=== PATIENT | female | born 2000 | race Caucasian/White ===

== ENCOUNTER 2023-04-07 08:20 | Outpatient (CLI) | payer OTHER, SELFPAY ==
[2023-04-07] VITALS (21 sets, daily range): BP systolic 120–132; BP diastolic 57–74; PULSE 85–113; TEMP 36.5–36.9; O2SAT 96–99; BMI 33.1
--- NOTE | 2023-04-07 08:58 | US_ITS ---
STUDY: SECOND AND THIRD TRIMESTER OBSTETRICAL ULTRASOUND-Limited REASON FOR EXAM: Female, 22 years old Vaginal bleeding LMP: 08/18/2022 TECHNIQUE: Transabdominal and Transvaginal TECHNICAL QUALITY: Adequate. PRIOR ULTRASOUND: None. FINDINGS: There is a single intrauterine fetus. The fetus is in a cephalic presentation. There is demonstrated cardiac activity with a heart rate of 143 bpm. There is a normal amniotic fluid volume. The largest amniotic fluid pocket measures 5.4 cm. The amniotic fluid index (SILAS) is 16.7 cm. The placenta is left lateral in location and is not low lying. There are Grade 1 placental changes. The cervix measures 4.4 cm, and is open, fluid noted in the cervix EGA by LMP is 33 weeks 1 day with ROMA of 05/25/2023 Detailed biometry and anatomy study not performed US/OB Limited (No Biometrics) IMPRESSION: Single live intrauterine with heart rate 143 bpm. Cervix measures 4.4 cm and is open and there is fluid within the cervix, likely hemorrhage. Vice President Of Manufacturing also noted hyperemia to the cervix. Electronically Signed: Fidel Han MD at 11:09 EDT ,
--- NOTE | 2023-04-07 08:59 | OB.TRI.HP_ITS ---
HPI - General HPI Narrative MALVIN URIOSTEGUI, is a 22 y/o @ 33 weeks from LMP who presents to L&D for vaginal bleeding that started at 7:30 this am. She sees a community engagement coordinator (marco a arizmendi) for her care. The patient states that Marco A gave them the option to have an ultrasound in the beginning of but they dec lined. She denies recent intercourse and states that all day yesterday she was active pulling weeds in the yard. She consents to and exam and ultrasound. PFSH PFSH Allergy/AdvReac Type Severity Reaction Status Date / Time No Known Allergies Allergy Verified 04/07/23 08:31 ROS Constitutional Constitutional: Reports systems reviewed and no addt'l complaints, except as documented Gastrointestinal Gastrointestinal: Denies bloating, constipation, cramping, diarrhea, nausea or vomiting Genitourinary Genitourinary: Reports other Details: Denies vaginal odor, vaginal bleeding, or vaginal discharge ; Denies difficulty urinating or flank pain Physical Exam Const alert, oriented x3 and no apparent distress HEENT normocephalic Chest Chest: symmetrical chest wall rise Resp normal respiratory effort and normal air movement Effort and Inspection: able to speak in complete sentences GI soft to palpation and non-tender no CVA tenderness Speculum Exam - Vagina: other slight active bleeding from cervix present. blood present on external genitalia and stained on thighs as evidence of moderate bleeding. cervix is closed but slight trickle of blood present. bedside scan shows vtx presentation, silas 18, hc and fl consistent with 33 weeks gestation, placenta appears to extend to head and unable to rule out previa or abruption. Extremity normal to inspection General Extremity: edema bilateral (trace ) NST FHR Rate Baby A Baseline: 150 Variability:: Moderate Accelerations:: 15 x 15 Decelerations:: None NST Reactive:: Yes FHR Category:: Category I Uterine Activity:: contractions q 2-3 minutes Assessment & Plan (1) Vaginal bleeding during , antepartum: COMMENT: INDINGS: There is a single intrauterine fetus. The fetus is in a cephalic presentation. There is demonstrated cardiac activity with a heart rate of 143 bpm. There is a normal amniotic fluid volume. The largest amniotic fluid pocket measures 5.4 cm. The amniotic fluid index (SILAS) is 16.7 cm. The placenta is left lateral in location and is not low lying. There are Grade 1 placental changes. The cervix measures 4.4 cm, and is open, fluid noted in the cervix EGA by LMP is 33 weeks 1 day with ROMA of 05/25/2023 Detailed biometry and anatomy study not performed US/OB Limited (No Biometrics) IMPRESSION: Single live intrauterine with heart rate 143 bpm. Cervix measures 4.4 cm and is open and there is fluid within the cervix, likely hemorrhage. Instructor Of Education also noted hyperemia to the cervix. PLAN: ultrasound pictures sent to Dr. Bull ([facility] in [place]) and he suspect that she has a previa, although not documented on report. The radiology special procedure tech thought maybe there was a previa also. plan to treat this patient as a bleeding previa and possible abruption vs labor with previa. a second pelvic exam was performed showing continues slow trickle of blood from the cervix. cervix remains closed. there were 2 late decelerations followed by moderate variability with accelerations. (2) Limited care in third trimester: PLAN: Plan stat vaginal ultrasound needed stat cbc, type and screen, fibrinogen, pt,ptt, and INR bedrest, npo celestone x 1 now results from above labs are all stable. Charges/Coding Multi Select Codes Visit Charges Office Visit/Consults: 17639 OV L3 Est Urinary/Genital Urinary/Genital CPT Codes: 30241-17 non-stress test Interp
[2023-04-07] MEDS: Betamethasone/Betamethasone 30 MG/5 ML Vial 12 MG IM (09:34)
[2023-04-07] MEDS: Lactated Ringers 1,000 ML 125 ML IV ×2 (09:34→17:59)
[2023-04-07 09:49] LABS: Absolute Neutrophil Count 8.7 X10^3/uL (2.0-7.7); Basophil# 0.02 X10^3/uL; Basophil% 0.2 % (0-1); Eosinophil# 0.17 X10^3/uL; Eosinophils% 1.6 % (0-5); Hematocrit 30.7 % (37-47); Hemoglobin 10.1 g/dL (12.0-15.0); Mean Corp Hgb Conc 32.9 g/dL (32-36); Mean Corpuscular Hgb 28.9 pg (27.0-32.0); Mean Platelet Vol. 9.8 fl (6.2-12.0); Monocyte# 0.91 X10^3/uL; Monocyte% 8.3 % (0-10); NRBC Flagged by Analyzer 0 % (0-5); Neutrophil # 8.71 X10^3/uL (2.7-7.7); Neutrophil % 79.5 % (47-70); Platelet Count 239 K/mm3 (150-450); RBC Distribution Width CV 13.1 % (11.6-14.6); RBC Distribution Width SD 41.1 fl (35.1-43.9); Red Blood Count 3.49 M/mm3 (4.2-5.4)
[2023-04-07 10:02] LABS: Prothrombin Time (Protime)PT. 13.4 SECONDS (11.7-14.9)
[2023-04-07 10:03] LABS: Fibrinogen 495 mg/dl (203-444); Partial Thromboplast Time 27.2 Seconds (24.1-36.2)
[2023-04-07 10:32] LABS: Bacteria 0 SEEN /hpf (None Seen); Mucous, Urine 0 SEEN /hpf (<or=2+); White Blood Cells 0 SEEN /hpf (0-5)
[2023-04-07 10:45] LABS: Color, Urine Yellow (Yellow); Glucose, Dipstick Normal (Normal); Ketone-Dipstick Negative (Negative); Leukocyte Esterase-Dipstick Negative /ul (Negative); Nitrite-Dipstick Negative (Negative); Occult Blood-Urine 150 /ul (Negative); Protein-Dipstick Negative (Negative); Urine Bilirubin Dipstick Negative (Negative); Urine Clarity Clear (Clear); Urine Urobilinogen Normal (Normal)
[2023-04-07 11:15] LABS: Red Blood Cells-Urine 10-25 SEEN /hpf (0-5); Squamous Epithelial Cells - UA 0-5 SEEN /hpf (5-10)
[2023-04-07] MEDS: NIFEdipine 10 MG Capsule 30 MG PO (12:52)
--- NOTE | 2023-04-07 12:54 | HP.PCM_ITS ---
History and Physical Date of Admission: 04/07/23 HPI - General HPI Narrative MALVIN URIOSTEGUI, is a 22 y/o @ 33 weeks from LMP who presents to L&D for vaginal bleeding that started at 7:30 this am. She sees a community development specialist (marco a arizmendi) for her care. The patient states that Marco A gave them t he option to have an ultrasound in the beginning of but they declined. She denies recent intercourse and states that all day yesterday she was active pulling weeds in the yard. She consents to and exam and ultrasound. PFSH PFSH Allergy/AdvReac Type Severity Reaction Status Date / Time No Known Allergies Allergy Verified 04/07/23 08:31 ROS Constitutional Constitutional: Reports systems reviewed and no addt'l complaints, except as documented Gastrointestinal Gastrointestinal: Denies bloating, constipation, cramping, diarrhea, nausea or vomiting Genitourinary Genitourinary: Reports other Details: Denies vaginal odor, vaginal bleeding, or vaginal discharge ; Denies difficulty urinating or flank pain Physical Exam Const alert, oriented x3 and no apparent distress HEENT normocephalic Chest Chest: symmetrical chest wall rise Resp normal respiratory effort and normal air movement Effort and Inspection: able to speak in complete sentences GI soft to palpation and non-tender no CVA tenderness Speculum Exam - Vagina: other slight active bleeding from cervix present. blood present on external genitalia and stained on thighs as evidence of moderate bleeding. cervix is closed but slight trickle of blood present. bedside scan shows vtx presentation, silas 18, hc and fl consistent with 33 weeks gestation, placenta appears to extend to head and unable to rule out previa or abruption. Extremity normal to inspection General Extremity: edema bilateral (trace ) NST FHR Rate Baby A Baseline: 150 Variability:: Moderate Accelerations:: 15 x 15 Decelerations:: None NST Reactive:: Yes FHR Category:: Category I Uterine Activity:: contractions q 2-3 minutes Assessment & Plan (1) Vaginal bleeding during , antepartum: COMMENT: INDINGS: There is a single intrauterine fetus. The fetus is in a cephalic presentation. There is demonstrated cardiac activity with a heart rate of 143 bpm. There is a normal amniotic fluid volume. The largest amniotic fluid pocket measures 5.4 cm. The amniotic fluid index (SILAS) is 16.7 cm. The placenta is left lateral in location and is not low lying. There are Grade 1 placental changes. The cervix measures 4.4 cm, and is open, fluid noted in the cervix EGA by LMP is 33 weeks 1 day with ROMA of 05/25/2023 Detailed biometry and anatomy study not performed US/OB Limited (No Biometrics) IMPRESSION: Single live intrauterine with heart rate 143 bpm. Cervix measures 4.4 cm and is open and there is fluid within the cervix, likely hemorrhage. Transcript Evaluator also noted hyperemia to the cervix. PLAN: ultrasound pictures sent to Dr. Bull ([facility] in [place]) and he suspect that she has a previa, although not documented on report. The technical sales engineer thought maybe there was a previa also. plan to treat this patient as a bleeding previa and possible abruption vs labor with previa. a second pelvic exam was performed showing continues slow trickle of blood from the cervix. cervix remains closed. there were 2 late decelerations followed by moderate variability with accelerations. (2) Limited care in third trimester: PLAN: Plan stat vaginal ultrasound needed stat cbc, type and screen, fibrinogen, pt,ptt, and INR bedrest, npo celestone x 1 now results from above labs are all stable. tracing has been stable now for several hours and patient is stable. plan to try procardia 30 mg loading po then 10 mg q 4 for tocolysis x 48 hrs to hopefully achieve enough time for the second dose of celestone. will proceed with delivery if or maternal distress is apparent.
[2023-04-07 13:12] LABS: Amphetamine Urine VISTA NEGATIVE (<1000 ng/mL); Barbiturate Urine VISTA NEGATIVE (< 200 ng/mL); Benzodiazepine Urine VISTA NEGATIVE (< 200 ng/mL); Cocaine Urine VISTA NEGATIVE (< 300 ng/mL); Ecstacy Urine VISTA NEGATIVE (< 500 ng/mL); Methadone Urine VISTA NEGATIVE (< 300 ng/mL); PCP Urine VISTA NEGATIVE (< 25 ng/mL); THC Urine VISTA NEGATIVE (< 50 ng/mL); Vista UDS pH Range 6
[2023-04-07 13:46] LABS: Rubella IgG Non-Reactive (Nonreactive); Syphilis Antibodies Non-reactive
[2023-04-07 14:07] LABS: HIV - WCH Non-Reactive (Nonreactive); Hepatitis B Surface Antigen Non-Reactive (Nonreactive); Hepatitis C Antibody Non-Reactive (Nonreactive)
[2023-04-07] MEDS: NIFEdipine 10 MG Capsule PO ×3 (14:12→22:14)
[2023-04-07 16:21] LABS: Hematocrit 31.7 % (37-47); Hemoglobin 10.5 g/dL (12.0-15.0); Mean Corp Hgb Conc 33.1 g/dL (32-36); Mean Corpuscular Hgb 29.6 pg (27.0-32.0); Mean Corpuscular Volume 89.3 fL (81-99); Mean Platelet Vol. 9.9 fl (6.2-12.0); Platelet Count 234 K/mm3 (150-450); RBC Distribution Width CV 13.1 % (11.6-14.6); RBC Distribution Width SD 42.9 fl (35.1-43.9); Red Blood Count 3.55 M/mm3 (4.2-5.4); White Blood Count 14.1 K/mm3 (4.4-11.0)
[2023-04-07 16:32] LABS: Prothrombin Time (Protime)PT. 13.6 SECONDS (11.7-14.9)
[2023-04-07 16:33] LABS: Partial Thromboplast Time 27.6 Seconds (24.1-36.2)
[2023-04-07 16:38] LABS: Fibrinogen 513 mg/dl (203-444)
[2023-04-08 01:43] VITALS: BP 122/57; PULSE 87; TEMP 36.8; O2SAT 98
[2023-04-08] MEDS: NIFEdipine 10 MG Capsule PO ×3 (01:46→10:07)
[2023-04-08] MEDS: Lactated Ringers 1,000 ML 125 ML IV ×2 (01:47→09:52)
[2023-04-08 06:22] VITALS: BP 115/65; PULSE 77; PULSE 78; TEMP 36.5; O2SAT 98
--- NOTE | 2023-04-08 09:51 | PCM.PN.OB ---
Subjective Subjective patient is laying in bed comfortably. Contractions and bleeding has stopped. She is due for a second does of celestone and is now refusing treatment. We discussed that if re-bleeding happens delivery will likely be recommended and transportation of the after delivery at our facility to a tertiary care center is as high as 75% at 33 weeks. I have discussed with Dr. Bull at [place], and we relayed information to the parents about risks of lung immaturity, NEC, intracranial hemorrhage, and . She currently is not under the care of a physician when and if discharge and I discussed with her that a bricklayer sewer practicing home deliveries is absolutely not appropriate to follow up care. The best chance of this surviving is a hospital delivery at a tertiary care center. I have also explained to her that there is still a chance that she has a previa despite radiology report here at [facility] that states is not low lying. There are images that show potential for previa that were shared with the high risk doctor in [place]. Objective Data Objective Data Vital Signs: Vital Signs Temp Pulse BP Pulse Ox 97.7 F L 77 115/65 98 04/08/23 06:22 04/08/23 06:22 04/08/23 06:22 04/08/23 06:22 Weight: 211 lb 8 oz Body Mass Index (BMI) 33.1 Intake & Output: Intake and Output for Last 24 Hours 04/06/23 04/07/23 04/08/23 23:59 23:59 23:59 Intake Total 1200 / 1200 1475 / 1475 Output Total 400 / 400 1700 / 1700 Balance 800 / 800 -225 / -225 Lab / Micro Data 04/07/23 15:40 Labs: Laboratory Results - last 24 hr 04/07/23 09:25: PT 13.4, INR 1.0, APTT 27.2, Fibrinogen 495 H, Blood Type A POSITIVE, Antibody Screen NEGATIVE 04/07/23 10:00: Urine Color Yellow, Urine Clarity Clear, Urine pH 7.0, Ur Specific [place] 1.010, Urine Protein Negative, Urine Glucose (UA) Normal, Urine Ketones Negative, Urine Occult Blood 150 H, Urine Nitrite Negative, Urine Bilirubin Negative, Urine Urobilinogen Normal, Ur Leukocyte Esterase Negative, Urine RBC 10-25 SEEN, Urine WBC 0 SEEN, Ur Squamous Epith Cells 0-5 SEEN, Urine Bacteria 0 SEEN, Urine Mucus 0 SEEN 04/07/23 12:47: Urine Opiates Screen NEGATIVE, Urine Methadone Screen NEGATIVE, Ur Barbiturates Screen NEGATIVE, Ur Phencyclidine Scrn NEGATIVE, Ur Amphetamines Screen NEGATIVE, MDMA (Ecstasy) Screen NEGATIVE, U Benzodiazepines Scrn NEGATIVE, Urine Cocaine Screen NEGATIVE, U Cannabinoids Screen NEGATIVE, Ur Drug Screen Comment , Syphilis Total Ab Non-reactive, Hep Bs Antigen Non-Reactive, Hepatitis C Antibody Non-Reactive, HIV 1&2 Antibody Non-Reactive, Rubella IgG Antibody Non-Reactive 04/07/23 15:40: WBC 14.1 H, RBC 3.55 L, Hgb 10.5 L, Hct 31.7 L, MCV 89.3, MCH 29.6, MCHC 33.1, RDW Std Deviation 42.9, RDW Coeff of [place] 13.1, Plt Count 234, MPV 9.9, PT 13.6, INR 1.0, APTT 27.6, Fibrinogen 513 H Micro: Microbiology 04/07/23 12:47 Genital vaginal Chlamydia trachomatis (PCR) - Final 04/07/23 12:47 Genital vaginal Neisseria gonorrhoeae (PCR) - Final Radiography Diagnostic Testing: Radiology Impression Obstetrics Ultrasound 04/07/23 08:58 IMPRESSION: Single live intrauterine with heart rate 143 bpm. Cervix measures 4.4 cm and is open and there is fluid within the cervix, likely hemorrhage. Assistant Family Teacher also noted hyperemia to the cervix. Electronically Signed: Fidel Han MD at 11:09 EDT Reading Location ID and State: [address] [place] [address] , Service support , ROS Constitutional Constitutional: Denies change in weight, fatigue, fever(s), headache(s), poor appetite or weakness Eyes Eyes: Denies blurry vision, change in vision, seeing flashes or spots in vision ENT HEENT: Denies dizziness, headache(s), loss taste/smell or sore throat Cardiovascular Cardiovascular: Denies chest pain, dizziness, dyspnea, irregular heart rhythm, leg edema, palpitations, rapid heart rate or vomiting Respiratory/Chest Respiratory/Chest: Denies chest tightness, cough, dyspnea or breast pain Gastrointestinal Gastrointestinal: Denies abdominal pain, anorexia, constipation, cramping, diarrhea, hemorrhoids, vomiting or weight changes Genitourinary Genitourinary: Denies dysuria, flank pain, genital lesions, genital pain, urinary frequency or urinary urgency Musculoskeletal Musculoskeletal: Denies back pain, difficulty walking, joint pain, limited range of motion, muscle cramps or numbness Integumentary Integumentary: Denies lesions or unusual bruising Neurologic Neurologic: Denies abnormal movements, abnormal speech, dizziness, numbness, seizure-like activity or syncope Psychiatric Psychiatric: Denies anxiety, behavioral changes, change in appetite, change in libido, cognitive impairment, confusion, depression, difficulty concentrating, hallucinations or suicidal thoughts Endocrine Endocrinology: Denies excessive sweating, polydipsia or polyuria Hematologic/Lymphatic Hematologic/Lymphatic: Denies easy bleeding, easy bruising or lymphadenopathy Allergic/Immunologic Allergic/Immunologic: Denies itchy eyes, lip swelling, seasonal rhinorrhea, rhinitis, throat swelling, tongue swelling, eczemia, wheezing or asthma Physical Exam Const alert, oriented x3, no apparent distress and healthy appearing General Appearance: cooperative; Negative for anxious HEENT normocephalic Face and Sinus: normal facial exam Eyes EOMs intact bilaterally and no scleral icterus General Eye: normal appearance of both eyes Neck full ROM and supple Lymph Lymphatic: no lymphadenopathy noted Chest Chest: abnormal inspection of the chest Resp normal respiratory effort Effort and Inspection: able to speak in complete sentences Cardio regular rate GI soft to palpation and non-tender Inspection: gravid Palpation: soft; Negative for tender external exam normal Back/Spine no CVA tenderness Extremity normal to inspection, full ROM and no clubbing, cyanosis or edema General Extremity: Negative for calf tenderness or edema Skin Lesions: no lesions Rashes: no rashes Psych mental status grossly normal NST FHR Rate Baby B Baseline: 130-140 Variability:: Moderate Accelerations:: 15 x 15 Decelerations:: None NST Reactive:: Yes FHR Category:: Category I Uterine Activity:: no contractions Assessment & Plan (1) Limited care in third trimester: (2) Vaginal bleeding during , antepartum: COMMENT: INDINGS: There is a single intrauterine fetus. The fetus is in a cephalic presentation. There is demonstrated cardiac activity with a heart rate of 143 bpm. There is a normal amniotic fluid volume. The largest amniotic fluid pocket measures 5.4 cm. The amniotic fluid index (SILAS) is 16.7 cm. The placenta is left lateral in location and is not low lying. There are Grade 1 placental changes. The cervix measures 4.4 cm, and is open, fluid noted in the cervix EGA by LMP is 33 weeks 1 day with ROMA of 05/25/2023 Detailed biometry and anatomy study not performed US/OB Limited (No Biometrics) IMPRESSION: Single live intrauterine with heart rate 143 bpm. Cervix measures 4.4 cm and is open and there is fluid within the cervix, likely hemorrhage. Assistant Family Teacher also noted hyperemia to the cervix. PLAN: Plan -Plan for transport to [facility] for repeat ultrasound to better rule out previa, monitoring, education, and if needed, delivery at a higher level nursery. - Patient will need a GCT at some point. we did not do this here due to giving one dose of steroids.
[2023-04-08 10:05] VITALS: BP 121/71; PULSE 104; TEMP 37.2
[2023-04-08 10:06] VITALS: PULSE 96; O2SAT 99
--- NOTE | 2023-04-08 10:45 | NURSING ---
Called report to Leigh at [facility].
== END 2023-04-08 11:30 | disposition short-term general hospital (02) ==
LOC: WPOUT 08:29 → WP 08:30
PROVIDERS: Referring Provider Obstetrics & Gynecology; Visit Provider Obstetrics & Gynecology
DX: O46.93 Antepartum hemorrhage, unspecified, third trimester (principal); Z3A.33 33 weeks gestation of pregnancy
CPT/HCPCS: 96365; 96366 ×25; 36415; 59025; 59050; 76815; 80307; 81001; 85025; 85027; 85384; 85610; 85730; 86703; 86762; 86780; 86803; 86850; 86900; 86901; 87340; 87491; 87591; 96372; 99221; J7120; G0378; J0702